=== PATIENT | female | born 2000 | race Caucasian/White ===

== ENCOUNTER 2021-08-13 02:12 | Emergency (ER) | payer SELFPAY ==
[2021-08-13] MEDS ORDERED: Ondansetron PF 4 MG/2 ML Vial ONE (02:34)
== END 2021-08-13 04:27 | disposition home or self-care (01) ==
LOC: ERS 02:12
DX: F10.129 Alcohol abuse with intoxication, unspecified (principal)
CPT/HCPCS: 96374; J2405